=== PATIENT | male | born 1960 | race Caucasian/White ===

== ENCOUNTER 2019-06-04 13:18 | Outpatient (CLI) | payer OTHER, MEDICARE, SELFPAY ==
--- NOTE | ~2019-06-04 | CT_ITS ---
EXAMINATION: CT sinus wo con DATE: 06/04/2019 13:34 INDICATION: Chronic sinusitis. Deviated nasal septum. TECHNIQUE: Computed tomography (CT) of the paranasal sinuses was performed without contrast. Iterativ e reconstruction technique was employed. Exam dose: 282.66 mGy-cm total exam DLP. COMPARISON: 05/29/2012 CT sinuses FINDINGS: There is rightward bowing of the nasal septum. The nasal turbinates are symmetric and normal size. The osteomeatal units are patent. Minimal focal mucoperiosteal thickening of the maxillary sinuses; otherwise the paranasal sinuses and mastoid air cells are normally developed and aerated. IMPRESSION: Rightward bowing of nasal septum Minimal focal mucoperiosteal thickening of the maxillary sinuses; otherwise normal paranasal sinuses, osteomeatal units and mastoid air cells Reviewed, dictated and finalized at [facility]. Reviewed, dictated and finalized at location [facility]. IMPRESSION: Rightward bowing of nasal septum Minimal focal mucoperiosteal thickening of the maxillary sinuses; otherwise nor mal paranasal sinuses, osteomeatal units and mastoid air cells
== END 2019-06-04 13:19 ==
PROVIDERS: Visit Provider Otolaryngology
DX: J34.2 Deviated nasal septum (principal); J34.89 Other specified disorders of nose and nasal sinuses
CPT/HCPCS: 70486

== ENCOUNTER → 2020-02-15 11:35 | Outpatient (CLI) | payer OTHER, MEDICARE, SELFPAY ==
--- NOTE | ~2020-02-15 | XR_ITS ---
EXAMINATION: XR chest 2V 02/15/2020 11:48 INDICATION: Asbestos exposure. PROCEDURE: 2 view chest COMPARISON: Comparison to multiple prior studies sequentially, with oldest reviewed study dated 10/2006. FINDINGS: The lungs are clear. The cardiomediastinal silhouette is within normal limits. There are no pleural effusions. There is no pneumothorax suspected. Status post median sternotomy for CABG. IMPRESSION: 1: NO ACUTE CARDIOPULMONARY DISEASE. Reviewed, dictated and finalized at location [facility]. ICAL MATERIAL HANDLER
== END ==
PROVIDERS: PCP Internal Medicine; Visit Provider Internal Medicine
DX: Z77.090 Contact with and (suspected) exposure to asbestos (principal)
CPT/HCPCS: 71046

== ENCOUNTER 2020-04-03 00:52 | Outpatient (CLI) | payer OTHER, MEDICARE, SELFPAY ==
[2020-04-03 19:06] LABS: SARS-CoV-2 RNA PCR Negative
== END 2020-04-03 00:53 | disposition home or self-care (01) ==
LOC: ANHCOVIDDT 00:52
PROVIDERS: PCP Internal Medicine; Visit Provider Internal Medicine Cardiovascular Disease
DX: Z01.812 Encounter for preprocedural laboratory examination (principal); Z20.822 Contact with and (suspected) exposure to COVID-19
CPT/HCPCS: C9803; U0003

== ENCOUNTER 2020-04-06 05:18 | Day surgery (SDC) | payer MEDICARE, SELFPAY ==
[2020-04-05 14:46] VITALS: BMI 31.0
[2020-04-06 11:00] VITALS: BP 170/101; PULSE 82; RESP 18; TEMP 35.9; O2SAT 98; BMI 31.0
--- NOTE | 2020-04-06 11:46 | WPDHPUPDATE1 ---
History and Physical Update Update Date/Time: 04/06/20 11:46 History and Physical has been reviewed, including an updated exam of the patient. There are NO changes in the patient's condition. Risks, benefits, and alternatives have been discussed and questions answered. Patient agrees to proceed with procedure.
--- NOTE | 2020-04-06 11:46 | PM.PROC ---
Procedure Note - Detailed Date of procedure: 04/06/20 Pre-op diagnosis: Recurrent Syncopy Procedure performed: Implantable loop recorder Description of procedure: Brief history present illness: Patient is a very pleasant 59-year-old male with a history of prior bypass surgery, hypertension, dyslipidemia, history of Alex's thyroiditis with history of recurrent near-syncope and syncope with injury referred for loop recorder for further evaluation. After verbal and written informed consent was obtained from the patient risks, benefits, and alternatives explained in detail the patient agreed to proceed with the plan of care as outlined above. Patient was evaluated at bedside in the [facility] procedure room. Patient was placed the appropriate supine position. Left anterior chest wall was prepped and draped in the usual sterile fashion. Operators in appropriate sterile garb. The left 4th intercostal space was identified and marked. Utilizing approximately 19 cc of 1% subcutaneous lidocaine the left anterior chest wall was then locally anesthetized. After local anesthesia was achieved, 2 fingerbreadths left of the sternum at the 4th intercostal space was again identified and a 1 cm incision was made with the included skin punch tool. Following this with the included introducer, a tract was made subcutaneously at a 45 degree angle from the sternum. The introducer was then inverted 180 degrees and with the included plunger the [employer]onic REVEAL LINQ loop recorder was advanced subcutaneously into position easily and without complication. The plunger was then removed followed by the introducer. Manual pressure was held for least 5-10 min with excellent hemostasis. The device was then interrogated and revealed excellent fidelity and measured at 0.39 mV. The Medtronic REVEAL LINQ SN [id number] was implanted without complication. The incision was then approximated and closed using skin adhesive. The incision was then covered with a sterile dressing. Complications: None Anesthesia: local Surgeon: Michele Jimenes MD Drains: No Packing: No Pathology: none sent Complications: None Condition: stable Disposition: same day
--- NOTE | 2020-04-06 13:13 | SUR.PHASEII ---
Patient educated post loop recorder implantation with video from [facility]. Patient denies any further questions or concerns after watching video. Patient ambulated with staff assistance at discharge, where he was picked up via vehicle by his . Patient A & O x 4 and denies pain at time of discharge.
== END 2020-04-06 13:15 | disposition home or self-care (01) ==
PROVIDERS: PCP Internal Medicine; Visit Provider Internal Medicine Cardiovascular Disease
PROC: (CPT 33285; principal; 2020-04-06 11:30)
DX: R55 Syncope and collapse (principal); I10 Essential (primary) hypertension; E78.5 Hyperlipidemia, unspecified; Z95.1 Presence of aortocoronary bypass graft; I25.10 Atherosclerotic heart disease of native coronary artery without angina pectoris; E06.3 Autoimmune thyroiditis; Z79.82 Long term (current) use of aspirin; Z20.822 Contact with and (suspected) exposure to COVID-19
CPT/HCPCS: 33285; C1764; C9803; U0003

== ENCOUNTER → 2020-05-08 01:48 | Outpatient (CLI) | payer MEDICARE, SELFPAY ==
[2020-05-08 19:35] LABS: SARS-CoV-2 RNA PCR Negative
== END ==
PROVIDERS: PCP Internal Medicine; Visit Provider Internal Medicine Gastroenterology
DX: Z01.812 Encounter for preprocedural laboratory examination (principal); Z20.822 Contact with and (suspected) exposure to COVID-19
CPT/HCPCS: C9803; U0003; U0005

== ENCOUNTER 2020-05-11 01:13 | Day surgery (SDC) | payer MEDICARE, SELFPAY ==
[2020-05-01 10:21] VITALS: BMI 31.1
[2020-05-11 10:24] VITALS: BMI 30.8
[2020-05-11] MEDS: LACTATED RINGERS 1,000 ML 150 ML IV CONT (10:33)
[2020-05-11 10:34] VITALS: BP 142/103; PULSE 96; RESP 20; TEMP 36.2; O2SAT 97
--- NOTE | 2020-05-11 10:44 | WPDANESEPPF ---
Anes - Initial Pre Proc Eval Procedure: Operation Date: 05/11/20 14:30 Proposed Procedures p Colonoscopy - Paul Cm MD Date/Time: 05/11/20 10:44 Surgeon: Paul Cm MD Pre Op Diagnosis: Anemia Patient Data Age: 59 Gender: M Height: 6 ft 4 in Weight: 115 kg Last Vital Signs Temp 36.2 C L 05/11/20 10:34 Pulse 96 05/11/20 10:34 Resp 20 05/11/20 10:34 BP 142/103 H 05/11/20 10:34 Pulse Ox 97 05/11/20 10:34 Allergies Allergy/AdvReac Type Severity Reaction Status Date / Time LALITO Inhibitors Allergy Cough Verified 05/11/20 10:21 Home Medications Medication Instructions Recorded Confirmed Type metoprolol succinate 50 mg capsule 50 mg PO DAILY 04/21/19 05/01/20 History sprinkle, ext. release 24 hr rosuvastatin 40 mg tablet 40 mg PO DAILY 04/21/19 05/01/20 History duloxetine 60 mg capsule,delayed 60 mg PO BID 11/08/19 05/01/20 History release losartan 100 mg tablet 100 mg PO DAILY 11/08/19 05/01/20 History meloxicam 15 mg tablet 15 mg PO DAILY #30 tablet 01/13/20 05/01/20 Rx ipratropium 0.5 mg-albuterol 3 mg 3 ml INHALATION QID PRN #90 ml 03/29/20 05/01/20 Rx (2.5 mg base)/3 mL nebulization soln aspirin 81 mg PO DAILY 04/06/20 05/01/20 History esomeprazole magnesium [Nexium] 20 mg PO DAILY 04/06/20 05/01/20 History gabapentin 300 mg PO BID 04/06/20 05/01/20 History levothyroxine 150 mcg PO DAILY 04/06/20 05/01/20 History sodium,potassium,mag sulfates 17.5 See Rx Instructions PO .COMPLEX 04/27/20 05/01/20 Rx gram-3.13 gram-1.6 gram oral soln #354 ml oxcarbazepine 150 mg PO BID 05/01/20 05/01/20 History trazodone 100 mg PO HS PRN 05/01/20 05/01/20 History Patient hx anesthesia problems: none Family hx anesthesia problems: none PMFSH Family History Family History Mother Patient's mother is in good health Father Patient's father is in good health Sibling Patient's sister is in good health Other Family history of malignant neoplasm Social History Social History Smoking packs per day: 0.5 Smoking cigarettes per day: 10.0 Years smoked: 30 Smoking pack-years: 15.00 Smoking status: Current every day smoker Tobacco type: cigarettes Second hand tobacco smoke exposure: No Smoking end date: 03/24/08 Alcohol intake: current Drinks per week: 6 Alcohol use details: liquor Substance use: never Living arrangements: with family Gender identity (if verbalized by the patient): Male Spiritual care concerns: No Anes - Eval Final PreProcedure Day of Procedure 05/11/20 10:44 Patient weight: obese Heart: regular rate and rhythm Lungs: clear to auscultation Airway: Mallampati scale class 1 Neurological: alert and oriented Last oral intake: >/= 8 hours ASA classification: IV Emergent: no Anesthetic plan: proceed Anesthesia type and monitoring: general GIVS and standard monitoring Informed Consent: The patient's anesthetic plan and its attendant risks and benefits were discussed with the patient/family/POA. Questions were solicited and answers provided to the satisfaction of the patient/family/POA.
--- NOTE | 2020-05-11 11:41 | PM.HPGS ---
History of Present Illness History of Present Illness Consent: Risks, benefits, and alternatives have been discussed and questions answered. Patient agrees to proceed with procedure. Chief complaint: Anemia Narrative: Madhav Garcia is a 59 year old male with mild anemia, no gib. Last colonoscopy about 7 years ago. Review of Systems Constitutional: Constitutional: Denies headache(s) and Denies weakness Eyes: Eyes: Denies blurry vision ENT: Reports Normal hearing present, Denies headache(s) and Denies neck pain Cardiovascular: Cardiovascular: Denies chest pain and Denies dyspnea Respiratory: Respiratory: Denies dyspnea Gastrointestinal: Gastrointestinal: Reports no additional gastrointestinal complaints Genitourinary: Genitourinary: Denies dysuria Musculoskeletal: Musculoskeletal: Denies neck pain Integumentary/Breasts: Skin/Breast: Denies dry skin Neurologic: Reports Normal hearing present, Denies headache(s) and Denies weakness Psychiatric: Psychiatric: Denies anxiety Endocrine: Endocrine: Denies change in body appearance Hematologic/Lymphatic: Hematologic/Lymphatic: Denies easy bleeding Allergic/Immunologic: Allergic/Immunologic: Denies urticaria [facility] Family History Family History Mother Patient's mother is in good health Father Patient's father is in good health Sibling Patient's sister is in good health Other Family history of malignant neoplasm Social History Social History Smoking packs per day: 0.5 Smoking cigarettes per day: 10.0 Years smoked: 30 Smoking pack-years: 15.00 Smoking status: Current every day smoker Tobacco type: cigarettes Second hand tobacco smoke exposure: No Smoking end date: 03/24/08 Alcohol intake: current Drinks per week: 6 Alcohol use details: liquor Substance use: never Living arrangements: with family Gender identity (if verbalized by the patient): Male Spiritual care concerns: No Meds Home Medications and Allergies Home Medications Medication Instructions Recorded Confirmed Type metoprolol succinate 50 mg capsule 50 mg PO DAILY 04/21/19 05/01/20 History sprinkle, ext. release 24 hr rosuvastatin 40 mg tablet 40 mg PO DAILY 04/21/19 05/01/20 History duloxetine 60 mg capsule,delayed 60 mg PO BID 11/08/19 05/01/20 History release losartan 100 mg tablet 100 mg PO DAILY 11/08/19 05/01/20 History meloxicam 15 mg tablet 15 mg PO DAILY #30 tablet 01/13/20 05/01/20 Rx ipratropium 0.5 mg-albuterol 3 mg 3 ml INHALATION QID PRN #90 ml 03/29/20 05/01/20 Rx (2.5 mg base)/3 mL nebulization soln aspirin 81 mg PO DAILY 04/06/20 05/01/20 History esomeprazole magnesium [Nexium] 20 mg PO DAILY 04/06/20 05/01/20 History gabapentin 300 mg PO BID 04/06/20 05/01/20 History levothyroxine 150 mcg PO DAILY 04/06/20 05/01/20 History sodium,potassium,mag sulfates 17.5 See Rx Instructions PO .COMPLEX 04/27/20 05/01/20 Rx gram-3.13 gram-1.6 gram oral soln #354 ml oxcarbazepine 150 mg PO BID 05/01/20 05/01/20 History trazodone 100 mg PO HS PRN 05/01/20 05/01/20 History Allergies Allergy/AdvReac Type Severity Reaction Status Date / Time LALITO Inhibitors Allergy Cough Verified 05/11/20 10:21 Vital Signs Vital Signs - 24 hr 05/11/20 10:34 Temperature 97.1 F L Pulse Rate 96 Respiratory Rate 20 Blood Pressure 142/103 H Pulse Oximetry 97 Exam Const: General: comfortable and no acute distress HENMT: General nose exam: Normal nares present Eyes: General: appearance normal, both eyes and all related structures Neck: Neck: no JVD Resp: Auscultation: clear to auscultation bilaterally Cardio: Rate: regular rate Rhythm: regular rhythm GI: Inspection: non-distended GI Palp: Yes Soft to palpation Skin: General skin exam: normal color Neuro: General: gait normal Speech: normal speech Extrem: General:
[2020-05-11 11:44] VITALS: BP 110/74; PULSE 82; RESP 15; O2SAT 98
[2020-05-11 11:54] VITALS: BP 130/85; PULSE 75; RESP 16; O2SAT 100
[2020-05-11 12:04] VITALS: BP 144/88; PULSE 75; RESP 16; O2SAT 100
== END 2020-05-11 12:17 | disposition home or self-care (01) ==
PROVIDERS: PCP Internal Medicine; Visit Provider Internal Medicine Gastroenterology
PROC: 0DJD8ZZ Inspection of Lower Intestinal Tract, Via Natural or Artificial Opening Endoscopic (ICD-10-PCS; CPT 45378; principal; 2020-05-11 14:30)
DX: D64.9 Anemia, unspecified (principal); D12.0 Benign neoplasm of cecum; D12.3 Benign neoplasm of transverse colon; D12.4 Benign neoplasm of descending colon; D12.5 Benign neoplasm of sigmoid colon; K64.8 Other hemorrhoids; F17.210 Nicotine dependence, cigarettes, uncomplicated; Z79.82 Long term (current) use of aspirin; E66.9 Obesity, unspecified; Z68.30 Body mass index [BMI] 30.0-30.9, adult
CPT/HCPCS: 45385; 88305; J2704; J7120

== ENCOUNTER 2020-05-29 15:21 | Outpatient (CLI) | payer MEDICARE, SELFPAY | END 2020-05-29 15:22 | disposition home or self-care (01) | LOC: ANHCOVIDVC 15:21 | PROVIDERS: PCP Internal Medicine | DX: Z23 Encounter for immunization (principal) | CPT/HCPCS: 0001A; 91300 ==

== ENCOUNTER 2020-06-20 15:31 | Outpatient (CLI) | payer MEDICARE, SELFPAY | END 2020-06-20 15:32 | disposition home or self-care (01) | LOC: ANHCOVIDVC 15:31 | PROVIDERS: PCP Internal Medicine | DX: Z23 Encounter for immunization (principal) | CPT/HCPCS: 0002A; 91300 ==

== ENCOUNTER 2021-04-30 13:28 | Outpatient (CLI) | payer MEDICARE, SELFPAY ==
--- NOTE | ~2021-04-30 | MR_ITS ---
EXAMINATION: MR lumbar spine wo/w con EXAM DATE: 04/30/2021 14:39 INDICATION: Back pain . TECHNIQUE: Multi-sequential, multiplanar MR images of the lumbar spine were obtained without contrast . Sagittal T1, T2, T2 fat saturation images. Axial T2 weighted images. Axial T1 weighted sequence. Patient was then injected with 20 mL Multihance intravenous contrast and reimaged. Postcontrast axi al and sagittal T1-weighted fat saturation sequences were obtained. Comparison is made to prior exami [facility] [place] from 02/20/2015. FINDINGS: There is moderate to severe disc disease L2-3, L4-5 and L5-S1. There is 2-3 mm retrolisthes is L2 on L3 and L4 on L5. There is 3 mm anterolisthesis L5 on S1 without spondylolysis. The conus med ullaris terminates at the L1/2 level and has normal signal intensity and morphology. Mild lumbar lev oscoliosis. Mild diffuse loss of lumbar vertebral body heights. Paraspinal soft tissue is unremarkabl e. Mild enhancement at the endplates of L2-S3 and L4-5, degenerative. No epidural abscess or disciti s suspected. Probable prior L4-5 laminotomies. Level by level evaluation: T11-12: There is a mild diffuse disc bulge. Facet arthropathy: Mild. Neural foraminal stenosis: No stenosis. Central canal stenosis: No stenosis. T12-L1: Disc does not extend beyond the endplate margin. Facet arthropathy: None. Neural foraminal stenosis: No stenosis. Central canal stenosis: No stenosis. L1-L2: There is a mild diffuse disc bulge. Facet arthropathy: Mild. Neural foraminal stenosis: No stenosis. Central canal stenosis: No stenosis. L2-L3: There is a mild to moderate diffuse disc bulge. Facet arthropathy: Mild to moderate. Neural foraminal stenosis: Mild right. Central canal stenosis: Mild. L3-L4: There is a mild to moderate diffuse disc bulge. Facet arthropathy: Mild. Neural foraminal stenosis: Minimal bilateral. Central canal stenosis: Mild. L4-L5: There is a moderate diffuse disc bulge. Facet arthropathy: Moderate. Neural foraminal stenosis: Moderate left, mild to moderate right. Central canal stenosis: Mild to moderate. L5-S1: There is a moderate diffuse disc bulge. Facet arthropathy: Moderate. Neural foraminal stenosis: Moderate to severe left, moderate right. Central canal stenosis: Mild to moderate. There is been progression in the spondylosis compared to 2015. IMPRESSION: 1. Moderate to severe lumbar spondylosis, progression compared to 2015. Reviewed, dictated and finalized at location [facility]. ET ANALYST
[2021-04-30 13:51] LABS: Estimated Glomerular Filt Rate 48
== END 2021-04-30 13:29 ==
PROVIDERS: PCP Internal Medicine
DX: M47.896 Other spondylosis, lumbar region (principal)
CPT/HCPCS: 72158; A9577

== ENCOUNTER → 2021-10-08 13:14 | Outpatient (CLI) | payer MEDICARE, SELFPAY ==
--- NOTE | ~2021-10-08 | CT_ITS ---
EXAMINATION: CT thoracic spine wo con DATE: 10/08/2021 13:31 INDICATION: Thoracic radiculopathy. TECHNIQUE: Computed tomography (CT) of the thoracic spine was performed without intravenous contrast. Automated exposure control and iterative reconstruction technique were employed. The dose-length pro duct was 1151.13 mGy-cm. COMPARISON: None FINDINGS: There is 7 degrees dextrocurvature of thoracic spine. There are changes of anterior fusion procedure at C6-C7. There is mild chronic anterior wedging of T7-L1 vertebral bodies. There are Schmo rl's nodes at multiple levels. There is mild to moderately decreased disc height from T3-T4 through T 11-T12. There is multilevel mild facet joint osteoarthritis. On the right, there is mild neural fora memo stenosis at T2-T3, T9-T10, and T10-T11. On the left, there is mild neural foraminal stenosis at T9-T10 and T10-T11. There is mild central canal stenosis at T11-T12. IMPRESSION: 1. Moderate thoracic spondylosis. Reviewed, dictated and finalized at location [facility].
== END ==
PROVIDERS: PCP Internal Medicine; Visit Provider Physical Medicine & Rehabilitation
DX: M47.24 Other spondylosis with radiculopathy, thoracic region (principal)
CPT/HCPCS: 72128

== ENCOUNTER → 2021-10-19 15:43 | Outpatient (CLI) | payer MEDICARE, SELFPAY ==
--- NOTE | ~2021-10-19 | US_ITS ---
US thyroid INDICATION: Hypothyroidism TECHNIQUE: Real-time sonographic images of the thyroid gland were obtained. COMPARISON: No prior studies for comparison. FINDINGS: The right thyroid lobe measures 4.9 x 1.2 x 1.6 cm. The left thyroid lobe measures 3.8 x 0 .8 x 1.4 cm. There is heterogeneous echotexture and echogenicity throughout the thyroid gland. No dis crete nodules identified. Normal vascular flow is present. IMPRESSION: 1. Heterogeneous thyroid without discrete nodule or abnormal vascularity. Reviewed, dictated and finalized at location A.
== END ==
PROVIDERS: PCP Internal Medicine Endocrinology, Diabetes & Metabolism; Visit Provider Internal Medicine Endocrinology, Diabetes & Metabolism
DX: E04.9 Nontoxic goiter, unspecified (principal)
CPT/HCPCS: 76536

== ENCOUNTER 2022-04-18 13:44 | Outpatient (CLI) | payer MEDICARE, SELFPAY ==
--- NOTE | ~2022-04-18 | CT_ITS ---
EXAMINATION: CT lung screening DATE: 04/18/2022 14:12 INDICATION: Personal history of nicotine dependence TECHNIQUE: Computed tomography (CT) of the chest was performed without intravenous contrast. The dose -length product was 246.93 mGy-cm. Automated exposure control and iterative reconstruction technique were employed. COMPARISON: None FINDINGS: Heart size normal. No significant pleural or pericardial effusion. There are multiple bilat eral calcified pulmonary nodules, consistent with chronic granulomatous disease. No thoracic lymphade nopathy. No significant pleural or pericardial effusion. There are cholecystectomy clips. Status post median sternotomy for CABG. Mild wedge compression deformities of T9-T12, likely chronic. Mild thora cic spondylosis. There is a spinal stimulator lead in the mid thoracic spine. No endobronchial lesion s. No pneumothorax. There are a few 1-2 mm nodules bilaterally which are too small to characterize fo r calcifications, likely benign. IMPRESSION: 1. Lung-RADS category 2: Benign appearance or behavior. Continue annual screening with noncontrast lo w-dose chest CT in 12 months. Reviewed, dictated and finalized at location A. URNIST PHYSICIAN IMPRESSION: 1. Lung-RADS category 2: Benign appearance or behavior. Continue annual screeni ng with noncontrast low-dose chest CT in 12 months.
== END 2022-04-18 13:45 | disposition home or self-care (01) ==
PROVIDERS: PCP Internal Medicine; Visit Provider Internal Medicine
DX: Z12.2 Encounter for screening for malignant neoplasm of respiratory organs (principal); F17.210 Nicotine dependence, cigarettes, uncomplicated
CPT/HCPCS: 71271

== ENCOUNTER 2022-05-09 11:11 | Outpatient (CLI) | payer MEDICARE, SELFPAY ==
[2022-05-09 19:34] LABS: Prostate Specific Antigen 1.5 ng/mL (< OR = 4.0); Thyroid Stimulating Hormone 0.439 uIU/mL (0.465-4.680)
[2022-05-09 19:54] LABS: Free T4 Free Thyroxine 1.42 ng/mL (0.78-2.19)
[2022-05-17 13:58] LABS: Testosterone Total 484 ng/dL (250-1100)
== END 2022-05-09 11:12 | disposition home or self-care (01) ==
LOC: ANHWCLAB 11:12
PROVIDERS: PCP Internal Medicine; Visit Provider Internal Medicine Endocrinology, Diabetes & Metabolism
DX: E03.9 Hypothyroidism, unspecified (principal); E06.3 Autoimmune thyroiditis; E29.1 Testicular hypofunction
CPT/HCPCS: 36415; 84153; 84403; 84439; 84443; 85014; 85018

== ENCOUNTER 2022-10-07 13:05 | Outpatient (CLI) | payer MEDICARE, SELFPAY ==
--- NOTE | ~2022-10-07 | CT_ITS ---
EXAMINATION: CT cervical spine wo con DATE: 10/07/2022 13:37 INDICATION: Mid to low neck pain. Cervical radiculopathy. TECHNIQUE: Computed tomography (CT) of the cervical spine was performed without intravenous contrast. Automated exposure control and iterative reconstruction technique were employed. The dose-length pro duct was 446.39 mGy-cm. COMPARISON: None FINDINGS: There is 4 degrees dextrocurvature of cervical spine. There are changes of anterior fusion procedure at C6-C7 with interbody bone graft and anterior plate and screws. Vertebral body heights ar e normal. There is mildly decreased disc height at C5-C6. The following disc levels are specifically discussed: C2-C3: There is mild bilateral uncovertebral joint osteoarthritis. There is severe left facet joint o steoarthritis. There is no neural foraminal stenosis. There is no central canal stenosis. C3-C4: There is mild bilateral uncovertebral joint osteoarthritis. There is mild right and moderate l eft facet joint osteoarthritis. There is mild bilateral neural foraminal stenosis. There is mild cent ral canal stenosis. C4-C5: There is mild bilateral uncovertebral joint osteoarthritis. There is mild bilateral facet join t osteoarthritis. There is no neural foraminal stenosis. There is mild central canal stenosis. C5-C6: There is mild bilateral uncovertebral joint osteoarthritis. There is mild bilateral facet join t osteoarthritis. There is no neural foraminal stenosis. There is mild central canal stenosis. C6-C7: There is moderate bilateral uncovertebral joint hypertrophy. There is mild bilateral facet yu nt osteoarthritis. There is mild bilateral neural foraminal stenosis. There is mild central canal kemal nosis. C7-T1: There is mild bilateral uncovertebral joint osteoarthritis. There is severe bilateral facet dean int osteoarthritis. There is mild bilateral neural foraminal stenosis. There is mild central canal st enosis. IMPRESSION: 1. Mild cervical spondylosis. 2. Anterior fusion procedure at C6-C7. Reviewed, dictated and finalized at location A.
== END 2022-10-07 13:06 | disposition home or self-care (01) ==
PROVIDERS: PCP Internal Medicine; Visit Provider Physical Medicine & Rehabilitation
DX: M47.22 Other spondylosis with radiculopathy, cervical region (principal); Z98.1 Arthrodesis status
CPT/HCPCS: 72125

== ENCOUNTER 2023-12-11 13:49 | Outpatient (CLI) | payer MEDICARE, SELFPAY ==
[2023-12-11 14:35] LABS: Hematocrit 44.2 % (42.0-52.0); Hemoglobin 14.4 g/dL (14.0-18.0); Mean Corpuscular HGB Conc 32.6 g/dl (32-36); Mean Corpuscular Hemoglobin 29.9 pg (26-34); Mean Corpuscular Volume 91.9 fl (80-100); Mean Platelet Volume 10.9 fl (7.4-10.4); Platelet Count Result 165 k/mm3 (150-375); Red Blood Count 4.81 M/mm3 (4.6-6.20); Red Cell Distribution Width 14.9 % (11.5-14.5); White Blood Count 7.1 K/mm3 (4.5-10.0)
[2023-12-11 14:51] LABS: Alanine Aminotransferase 76 U/L (6-50); Alkaline Phosphatase 63 U/L (38-126); Anion Gap 7 mmol/L (4-12); Aspartate Amino Transferase 65 U/L (17-59); Bilirubin,Total 0.8 mg/dL (0.2-1.3); Blood Urea Nitrogen 32 mg/dL (9-20); Calcium 9.6 mg/dL (8.4-10.2); Carbon Dioxide 29 mmol/L (22-30); Chloride 98 mmol/L (98-107); Cholesterol 157 mg/dL (0-200); Estimated Glomerular Filt Rate 24; Glucose 106 mg/dL (65-110); HDL Direct 65 mg/dL; Potassium 5.2 mmol/L (3.4-5.0); Sodium 134 mmol/L (137-145); Triglycerides 156 mg/dL (<150)
[2023-12-11 15:02] LABS: LDL Cholesterol Direct 56 mg/dL
[2023-12-11 15:23] LABS: Prostate Specific Antigen 1.1 ng/mL (< OR = 4.0)
[2023-12-11 15:50] LABS: Free T4 Free Thyroxine 0.13 ng/mL (0.78-2.19)
[2023-12-11 16:14] LABS: Thyroid Stimulating Hormone > 100.000 uIU/mL (0.465-4.680)
[2023-12-13 06:55] LABS: FSH 3.2 mIU/mL (1.4-12.8); LH 3.7 mIU/mL (1.6-15.2); Sex Hormone Binding Globulin 13 nmol/L (22-77)
[2023-12-14 04:09] LABS: Testosterone Total 110 ng/dL (250-1100)
[2023-12-15 14:19] LABS: Testosterone Free 22.1 pg/mL (46.0-224.0)
== END 2023-12-11 13:50 | disposition home or self-care (01) ==
PROVIDERS: PCP Nurse Practitioner; Visit Provider Internal Medicine Endocrinology, Diabetes & Metabolism
DX: E03.9 Hypothyroidism, unspecified (principal); E29.1 Testicular hypofunction; Z12.5 Encounter for screening for malignant neoplasm of prostate
CPT/HCPCS: 36415; 80053; 80061; 83001; 83002; 84153; 84270; 84402; 84403; 84439; 84443; 85027; G0103

== ENCOUNTER 2024-02-26 14:54 | Outpatient (CLI) | payer MEDICARE, SELFPAY ==
[2024-02-26 15:24] LABS: Hematocrit 41.9 % (42.0-52.0)
[2024-02-26 16:01] LABS: Thyroid Stimulating Hormone 0.454 uIU/mL (0.465-4.680)
[2024-02-26 16:05] LABS: Free T4 Free Thyroxine 1.61 ng/dL (0.78-2.19)
== END 2024-02-26 14:55 | disposition home or self-care (01) ==
LOC: ANHLAB 14:56
PROVIDERS: PCP Nurse Practitioner; Visit Provider Internal Medicine Endocrinology, Diabetes & Metabolism
DX: E06.3 Autoimmune thyroiditis (principal); E29.1 Testicular hypofunction
CPT/HCPCS: 36415; 84402; 84403; 84439; 84443; 85014; 85018

== ENCOUNTER 2024-05-10 14:22 | Outpatient (CLI) | payer MEDICARE, SELFPAY ==
--- NOTE | ~2024-05-10 | XR_ITS ---
EXAMINATION: XR shoulder LT min 2V DATE: 05/10/2024 14:48 INDICATION: Osteoarthritis, shoulder. TECHNIQUE: 4 views of left shoulder were obtained. COMPARISON: Left shoulder radiographs 12/29/2006 FINDINGS: Alignment is normal. No fracture. There is mild glenohumeral joint osteoarthritis. There is severe acromioclavicular joint osteoarthritis. Median sternotomy wires and mediastinal surgical clip s are seen, likely from prior coronary artery bypass grafting. There is electronic implant overlying left chest. There are changes of anterior fusion procedure in cervical spine. IMPRESSION: 1. Polyarticular osteoarthritis. Reviewed, dictated and finalized at location A. R POLISHING WORKER
== END 2024-05-10 14:23 | disposition home or self-care (01) ==
LOC: MICIMG 14:24
PROVIDERS: PCP Nurse Practitioner; Visit Provider Physical Medicine & Rehabilitation Pain Medicine
DX: M19.012 Primary osteoarthritis, left shoulder (principal)
CPT/HCPCS: 73030

== ENCOUNTER 2024-12-13 13:07 | Outpatient (CLI) | payer MEDICARE, SELFPAY ==
--- NOTE | ~2024-12-13 | XR_ITS ---
EXAMINATION: XR pelvis min 3V, 12/13/2024 13:15 CDT HISTORY: Sacroiliitis COMPARISON: No comparisons available. Findings: No acute fracture or malalignment. Sclerosis of the sacroiliac joints however there is no erosion or bridging osteophyte formation identified Soft tissues unremarkable. Impression: No acute fracture or malalignment. Reviewed, dictated and finalized at location A. Impression: No acute fracture or malalignment.
== END 2024-12-13 13:08 | disposition home or self-care (01) ==
PROVIDERS: PCP Nurse Practitioner; Visit Provider Physical Medicine & Rehabilitation Pain Medicine
DX: M46.1 Sacroiliitis, not elsewhere classified (principal)
CPT/HCPCS: 72190